=== PATIENT | male | born 1940 | race Caucasian/White ===

== ENCOUNTER → 2023-04-26 14:56 | Outpatient (REF) | payer MEDICARE, OTHER, SELFPAY ==
[2023-04-26 16:55] LABS: Blood Urea Nitrogen 25 mg/dl (9-20); Calcium 9.4 mg/dl (8.4-10.2); Carbon Dioxide 28 mmol/L (22-30); Chloride 104 mmol/L (98-107); Glucose 86 mg/dl (70-99); Potassium 4.1 mmol/L (3.5-5.1); Sodium 137 mmol/L (135-145); eGFR > 60.00
== END ==
LOC: REG 14:56
PROVIDERS: ATTENDING PHYSICIAN Specialist; FAMILY PHYSICIAN Family Medicine
DX: M53.3 Sacrococcygeal disorders, not elsewhere classified (principal)
CPT/HCPCS: 36415; 80048

== ENCOUNTER → 2023-05-01 15:10 | Outpatient (REF) | payer MEDICARE, OTHER, SELFPAY | LOC: RAD 15:10 | PROVIDERS: ATTENDING PHYSICIAN Specialist; FAMILY PHYSICIAN Family Medicine | DX: M53.3 Sacrococcygeal disorders, not elsewhere classified (principal) | CPT/HCPCS: 72194; Q9967 ==

== ENCOUNTER → 2023-05-15 13:09 | Outpatient (REF) | payer MEDICARE, OTHER, SELFPAY | LOC: RAD 13:09 | PROVIDERS: ATTENDING PHYSICIAN Nurse Practitioner Family; FAMILY PHYSICIAN Internal Medicine | DX: R05.1 Acute cough (principal) | CPT/HCPCS: 71046 ==

== ENCOUNTER → 2023-12-12 10:41 | Outpatient (REF) | payer MEDICARE, OTHER, SELFPAY | LOC: EMG 10:41 | PROVIDERS: ATTENDING PHYSICIAN Orthopaedic Surgery; FAMILY PHYSICIAN Family Medicine | DX: R20.0 Anesthesia of skin (principal); G56.03 Carpal tunnel syndrome, bilateral upper limbs | CPT/HCPCS: 95886; 95911 ==